=== PATIENT | male | born 1970 | race Asian ===

== ENCOUNTER 2021-01-17 19:10 | Emergency (ER) | payer SELFPAY ==
[~2021-01-17] VITALS: Ht 170.2 cm; Wt 72.6 kg
[2021-01-18 00:58] VITALS: BP 130/97
[2021-01-18] MEDS ORDERED: BACITRACIN TOP OINT 1 UD PKG TOP ONE (02:30)
== END 2021-01-18 02:40 | disposition home or self-care (01) ==
LOC: ER 19:13
DX: S61.213A Laceration without foreign body of left middle finger without damage to nail, initial encounter (principal); S61.215A Laceration without foreign body of left ring finger without damage to nail, initial encounter; W26.0XXA Contact with knife, initial encounter; Y93.89 Activity, other specified; Y92.89 Other specified places as the place of occurrence of the external cause; Y99.8 Other external cause status
CPT/HCPCS: 12002; 73130